=== PATIENT | male | born 1960 | race Caucasian/White ===

== ENCOUNTER 2016-08-26 10:09 | Emergency (ER) | payer OTHER ==
[~2016-08-26] VITALS: Ht 177.8 cm; Wt 100.0 kg
[~2016-08-26 10:09] MED LIST: CIPR500T2 PO; DENT1.1G; DIPH25CA PO; FAMO20TA2 PO; GEMF600T PO; IPRAAER INH; LACT10SO PO; LANTUS2P SQ; LISI10TA3 PO; LITH300C2 PO; METF1000 PO; METH10TA PO; NOVOLOGP2 SQ; PANT40TA3 PO; VENL75CA44 PO; ZIPR1CAP6 PO; [UNRECOGNIZED DRUG - CODE]; [UNRECOGNIZED DRUG - CODE] PO
[2016-08-26 10:11] VITALS: BP 169/94; PULSE 92; RESP 20; TEMP 98.1; O2SAT 99
[2016-08-26 11:15] VITALS: BP 200/96; PULSE 87; RESP 18; O2SAT 96
--- NOTE | 2016-08-26 11:28 | PD ---
HPI Chief Complaint: GI Complaint Time Seen by Provider: 11:24 Travel History International Travel<30 days: No Contact w/Intl Traveler<30days: No Traveled to known affect area: No History of Present Illness HPI Patient is complaining of generalized abdominal pain began 3 days ago. Patient states pain began after eating [employer]. Patient states had similar happen to him back in April of last year where he had to have stones removed. Patient reports they took his gallbladder at that time. Patient states he is not vomiting this time as he was previously. Patient states he feels in his abdomen is becoming more distended and having bloating pain. Patient states he has not had any type of bowel movement or passing gas for the past 3 days. Patient concerning the may have a blockage. Denies any fevers, chest pain, shortness of breath, or headaches. Patient reports he took his morning medications including his methadone. PFSH Past Medical History Arthritis: Yes (in back) Asthma: No Anxiety: Yes Depression: Yes Heart Rhythm Problems: No Cancer: No Cardiac Catheterization: No Cardiovascular Problems: Yes (HTN) High Cholesterol: Yes Chemotherapy: No Chest Pain: No Congestive Heart Failure: No COPD: No Diabetes: Yes Diminished Hearing: No Endocrine: No Gastrointestinal Disorders: Yes (ERCP FEB 2012) GERD: No Genitourinary: No Hiatal Hernia: No Hypertension: Yes Immune Disorder: No Musculoskeletal: Yes Neurologic: Yes Psychiatric: No Reproductive: No Respiratory: Yes (smoker, daily 3-4 per day) Migraines: Yes (once a month) Radiation Therapy: No Sickle Cell Disease: No Sleep Apnea: No Thyroid Disease: No Ulcer: No ?: Not Past Surgical History Abdominal Surgery: No AICD: No Arteriovenous Shunt: No Cardiac Surgery: No Cholecystectomy: Yes (FEB 2012) Coronary Artery Bypass Graft: No Ear Surgery: No Endocrine Surgery: No Eye Surgery: No Genitourinary Surgery: No Gynecologic Surgery: No Insulin Pump: No Joint Replacement: No Oral Surgery: Yes (upper teeth removed) Thoracic Surgery: No Social History Alcohol Use: No Tobacco Use: Yes Substance Use: No Allergies-Medications (Allergen,Severity, Reaction): Coded Allergies: Morphine (Verified Allergy, Intermediate, Itching, 08/26/16) Uncoded Allergies: short acting insulin (Allergy, Severe, Skin tightens, legs get red, ) Reported Meds & Prescriptions Reported Meds & Active Scripts Active Reported Dulcolax Stool Softener (Docusate Sodium) 100 Mg Cap 200 Mg PO DAILY Nicotine Patch (Nicotine) 21 Mg/24 Hr Patch 21 Mg T-DERMAL DAILY Metformin (Metformin HCl) 500 Mg Tab 2,000 Mg PO DAILY With a meal Lisinopril 40 Mg Tab 20 Mg PO DAILY Lactulose Liq (Lactulose) 10 Gm/15 Ml Soln 20 Ml PO BID PRN Lantus Inj (Insulin Glargine) 100 Unit/Ml Inj 5 Units SQ DAILY Methadone (Methadone HCl) 10 Mg Tab 50 Mg PO DAILY Review of Systems Except as stated in HPI: all other systems reviewed are Neg Physical Exam Narrative GENERAL: Well-developed, overly nourished, in no acute distress, and non-ill appearing. SKIN: Focused skin assessment warm and dry. HEAD: Atraumatic. Normocephalic. EYES: Pupils equal and round. EOMI. No scleral icterus. No injection or drainage. ENT: No nasal bleeding or discharge. Mucous membranes pink and moist. NECK: Trachea midline. Supple. No nuclear rigidity. CARDIOVASCULAR: Regular rate and rhythm. No murmur appreciated. RESPIRATORY: No accessory muscle use. No respiratory distress. Clear to auscultation. Breath sounds equal bilaterally. GASTROINTESTINAL: Abdomen slightly firm, distended. Hepatic and splenic margins not palpable. Hypoactive bowel sounds 4. No pulsatile mass. Patient reports tenderness throughout, but does not show signs of pain to palpation. MUSCULOSKELETAL: No obvious deformities. No clubbing. No cyanosis. Full range of motion. NEUROLOGICAL: Awake and alert. No obvious cranial nerve deficits. Motor grossly within normal limits. Normal speech. PSYCHIATRIC: Appropriate mood and affect; insight and judgment normal. Data Data Last Documented VS Vital Signs Date Time Temp Pulse Resp B/P Pulse Ox O2 Delivery O2 Flow Rate FiO2 08/26/16 11:45 18 96 Room Air 08/26/16 11:15 87 200/96 08/26/16 10:11 98.1 Orders Complete Blood Count With Diff (08/26/16 11:21) Comprehensive Metabolic Panel (08/26/16 11:21) Lipase (08/26/16 11:21) Lactic Acid (08/26/16 11:21) Prothrombin Time / Inr (Pt) (08/26/16 11:21) Act Partial Throm Time (Ptt) (08/26/16 11:21) Ct Abd/Pel W Iv Contrast(Rout) (08/26/16 11:21) Iv Access Insert/Monitor (08/26/16 11:21) Ecg Monitoring (08/26/16 11:21) Oximetry (08/26/16 11:21) Ondansetron Inj (Zofran Inj) (08/26/16 11:30) Sodium Chloride 0.9% Flush (Ns Flush) (08/26/16 11:30) Electrocardiogram (08/26/16 11:21) Chest, Single Ap (08/26/16 11:21) Iohexol 350 Inj (Omnipaque 350 Inj) (08/26/16 12:54) Labs Laboratory Tests Test 08/26/16 08/26/16 11:35 12:25 Prothrombin Time 10.0 SEC Prothromb Time International 0.9 RATIO Ratio Activated Partial 23.8 SEC Thromboplast Time Sodium Level 136 MEQ/L Potassium Level 4.6 MEQ/L Chloride Level 101 MEQ/L Carbon Dioxide Level 28.1 MEQ/L Anion Gap 7 MEQ/L Blood Urea Nitrogen 13 MG/DL Creatinine 0.94 MG/DL Estimat Glomerular Filtration 83 ML/MIN Rate Random Glucose 139 MG/DL Lactic Acid Level 1.2 mmol/L Calcium Level 9.3 MG/DL Total Bilirubin 0.4 MG/DL Aspartate Amino Transf 26 U/L (AST/SGOT) Alanine Aminotransferase 30 U/L (ALT/SGPT) Alkaline Phosphatase 129 U/L Total Protein 8.3 GM/DL Albumin 3.7 GM/DL Lipase 468 U/L White Blood Count 8.7 TH/MM3 Red Blood Count 4.62 MIL/MM3 Hemoglobin 11.6 GM/DL Hematocrit 36.2 % Mean Corpuscular Volume 78.4 FL Mean Corpuscular Hemoglobin 25.2 PG Mean Corpuscular Hemoglobin 32.2 % Concent Red Cell Distribution Width 13.6 % Platelet Count 230 TH/MM3 Mean Platelet Volume 8.3 FL Neutrophils (%) (Auto) 52.7 % Lymphocytes (%) (Auto) 37.0 % Monocytes (%) (Auto) 8.2 % Eosinophils (%) (Auto) 1.6 % Basophils (%) (Auto) 0.5 % Neutrophils # (Auto) 4.6 TH/MM3 Lymphocytes # (Auto) 3.2 TH/MM3 Monocytes # (Auto) 0.7 TH/MM3 Eosinophils # (Auto) 0.1 TH/MM3 Basophils # (Auto) 0.0 TH/MM3 CBC Comment DIFF FINAL Differential Comment MDM Medical Decision Making Medical Screen Exam Complete: Yes Emergency Medical Condition: Yes Differential Diagnosis SBO, ileus, obstipation, ascites, ischemic bowel, other Narrative Course Patient in room eating upon reevaluation. The patient presented with nonspecific abdominal pain. There was no significant history of vomiting or diarrhea and no fever. The patient appeared comfortable, well hydrated and the abdominal exam was mildly tender without guarding or rebound and no focal tenderness to me. Laboratory and radiologic/CT evaluation revealed no significant abnormalities. There was no evidence of an acute, surgical abdomen at this time. There was no clinical evidence to support appendicitis, bowel obstruction, cholecystitis/cholelithiasis, pancreatitis, perforation of gastric ulcer, colitis, diverticulitis, bacterial peritonitis, obstruction, volvulus, hernial incarceration or strangulation at this time. There was no evidence to support vascular pathology such as AAA, mesenteric ischemia. There was also no clinical evidence by history, exam or risk factors to suggest atypical presentation of cardiac disease such as ACS, AMI or atypical angina. No evidence to suggest genitourinary etiology as well. Clinical picture was discussed with the patient, as well as plan of care. The patient was instructed to follow up with their physician. Abdominal pain warnings were discussed with the patient. The patient is to return if worsens, pain worsens or changes, develop fever, inability to tolerate fluids with or without vomiting, unable to establish follow up or as needed. The patient agrees with plan. Patient in no obvious distress upon re-evaluation. All pertinent laboratory/ Radiology result(s) discussed with patient. Discussed patient with Dr. Leblanc, who saw and evaluated the patient and is in agreement with plan of care and disposition. Any questions/concerns in reference to patient diagnosis/ condition discussed and clarified prior to patient's discharge. Reinforced sheer importance of close follow up with patient's primary physician or primary care clinic. Instructed patient to return to ED immediately, if symptoms return/ worsen. Pt showed understanding of above instructions. Further instructions and recommendations were detailed in discharge paperwork. Pt ambulated without difficulty out of ED at discharge. 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 Return to the emergency department if symptoms get worse. Disposition: 01 DISCHARGE HOME Condition: Stable Hosea Alvarado Aug 26, 2016 11:28
[2016-08-26] MEDS ORDERED: SODIUM CHLORIDE 0.9% FLUSH 10 ML FLUSH IV FLUSH PRN (11:30)
[2016-08-26] MEDS ORDERED: ONDANSETRON HCL 4 MG/2 ML VIAL IVP ONE (11:30)
--- NOTE | 2016-08-26 11:42 | RADRPT ---
EXAM DATE/TIME: 08/26/2016 11:22 [facility] COMPARISON: No previous studies available for comparison. INDICATIONS : Free air, lower chest pain. MEDICAL HISTORY : Emphysema. SURGICAL HISTORY : None. ENCOUNTER: Initial ACUITY: 1 day PAIN SCORE: 8/10 LOCATION: Bilateral chest FINDINGS: A single view of the chest demonstrates the lungs to be symmetrically aerated without evidence of mas s, infiltrate or effusion. The cardiomediastinal contours are unremarkable. Osseous structures are intact. CONCLUSION: No acute disease. Cam Samuel MD FACR on August 26, 2016 at 11:40 Board Certified Radiologist. This report was verified electronically.
[2016-08-26 11:45] VITALS: RESP 18; O2SAT 96
[2016-08-26] MEDS ORDERED: LISI40TA PO (11:51)
[2016-08-26] MEDS ORDERED: METF500T PO (11:51)
[2016-08-26] MEDS ORDERED: NICO21DI2 T-DERMAL (11:51)
[2016-08-26] MEDS ORDERED: DULC100C PO (11:51)
[2016-08-26 12:13] LABS: APTT (PATIENT) 23.8 SEC (24.3-30.1); INTERNATIONAL NORMALIZED RATIO 0.9 RATIO
[2016-08-26 12:15] LABS: ANION GAP 7 MEQ/L (5-15); AST (GOT) 26 U/L (15-37); BICARBONATE 28.1 MEQ/L (21.0-32.0); BLOOD UREA NITROGEN 13 MG/DL (7-18); CHLORIDE 101 MEQ/L (98-107); GLOMERULAR FILTRATION RATE 83 ML/MIN (>89); POTASSIUM 4.6 MEQ/L (3.5-5.1); SODIUM (NA) 136 MEQ/L (136-145)
[2016-08-26 12:34] LABS: ALKALINE PHOSPHATASE 129 U/L (45-117); ALT (GPT) 30 U/L (12-78); TOTAL BILIRUBIN ADULT 0.4 MG/DL (0.2-1.0)
[2016-08-26 12:48] LABS: AUTOMATED NEUTROPHIL # 4.6 TH/MM3 (1.8-7.7); BASOPHIL % 0.5 % (0.0-2.0); EOSINOPHIL # 0.1 TH/MM3 (0-0.4); EOSINOPHIL % 1.6 % (0.0-4.0); HEMATOCRIT 36.2 % (39.0-51.0); HEMO FLAGS DIFF FINAL; LYMPHOCYTE # 3.2 TH/MM3 (1.0-4.8); MEAN CELL VOLUME 78.4 FL (80.0-100.0); MEAN CORPUSCULAR HEMOGLOBIN 25.2 PG (27.0-34.0); MEAN CORPUSCULAR HGB CONC 32.2 % (32.0-36.0); MONO % 8.2 % (0.0-8.0); NEUT % 52.7 % (16.0-70.0); PLATELET COUNT 230 TH/MM3 (150-450); RED BLOOD COUNT 4.62 MIL/MM3 (4.50-5.90); RED CELL DISTRIBUTION WIDTH 13.6 % (11.6-17.2); WHITE BLOOD COUNT 8.7 TH/MM3 (4.0-11.0)
[2016-08-26] MEDS ORDERED: IOHEXOL 350 MG/ML 10 ML VIAL (for RAD DIAG) IV ONE (12:54)
--- NOTE | 2016-08-26 13:38 | RADRPT ---
EXAM DATE/TIME: 08/26/2016 12:40 [facility] COMPARISON: No previous studies available for comparison. INDICATIONS : Upper and mid abdominal pain. IV CONTRAST: 96 cc Omnipaque 350 (iohexol) IV ORAL CONTRAST: No oral contrast ingested. RADIATION DOSE: 15.89 CTDIvol (mGy) MEDICAL HISTORY : Hypertension. Cardiovascular disease Diabetes, liver disease SURGICAL HISTORY : Cholecystectomy. ENCOUNTER: Initial ACUITY: 3 days PAIN SCALE: 6/10 LOCATION: Bilateral upper quadrant TECHNIQUE: Volumetric scanning of the abdomen and pelvis was performed. Using automated exposure control and ad justment of the mA and/or kV according to patient size, radiation dose was kept as low as reasonably achievable to obtain optimal diagnostic quality images. FINDINGS: LOWER LUNGS: The visualized lower lungs are clear. LIVER: Homogeneous density without lesion. There is no dilation of the biliary tree. Gallbladder is surgic ally absent. SPLEEN: Normal size without lesion. PANCREAS: Within normal limits. KIDNEYS: Normal in size and shape. There is no mass, stone or hydronephrosis. ADRENAL GLANDS: Within normal limits. VASCULAR: There is no aortic aneurysm. Minimal calcifications are noted. BOWEL/MESENTERY: The stomach, small bowel, and colon demonstrate no acute abnormality. There is no free intraperitone al air or fluid. ABDOMINAL WALL: Within normal limits. RETROPERITONEUM: There is no lymphadenopathy. BLADDER: No wall thickening or mass. REPRODUCTIVE: Within normal limits. INGUINAL: There is no lymphadenopathy or hernia. MUSCULOSKELETAL: Within normal limits for patient age. CONCLUSION: Negative for acute process. Cam Samuel MD FACR on August 26, 2016 at 13:34 Board Certified Radiologist. This report was verified electronically.
--- NOTE | 2016-08-26 18:05 | PD ---
Physical Exam Narrative I, Dr. Leblanc, have reviewed the advance practice practitioner's documentation and am in agreement, met with the patient face to face, made the diagnosis, and the medical decision making was done by me. *My assessment and Findings: Pancreatitis vs. cholecystitis vs. colitis 56yo M with epigastric abdominal pain for 3 days. Pt has history of ERCP with removal of stones. Pt currently has no fever, vomiting, urinary complaints. Abdomen is soft, mild ttp epigastric region. No rebound tenderness or guarding. Labs reviewed, no leukocytosis. Lactic acid 1.2. Lipase mildly elevated at 468. Pt given zofran for nausea. CXR negative. CTa/p negative for acute process. Pt reevaluated at bedside and abdominal pain resolved. Pt is tolerating PO and eating in the ED. Return precautions given. Data Data Last Documented VS Vital Signs Date Time Temp Pulse Resp B/P Pulse Ox O2 Delivery O2 Flow Rate FiO2 08/26/16 11:45 18 96 Room Air 08/26/16 11:15 87 200/96 08/26/16 10:11 98.1 Orders Complete Blood Count With Diff (08/26/16 11:21) Comprehensive Metabolic Panel (08/26/16 11:21) Lipase (08/26/16 11:21) Lactic Acid (08/26/16 11:21) Prothrombin Time / Inr (Pt) (08/26/16 11:21) Act Partial Throm Time (Ptt) (08/26/16 11:21) Ct Abd/Pel W Iv Contrast(Rout) (08/26/16 11:21) Iv Access Insert/Monitor (08/26/16 11:21) Ecg Monitoring (08/26/16 11:21) Oximetry (08/26/16 11:21) Ondansetron Inj (Zofran Inj) (08/26/16 11:30) Sodium Chloride 0.9% Flush (Ns Flush) (08/26/16 11:30) Electrocardiogram (08/26/16 11:21) Chest, Single Ap (08/26/16 11:21) Iohexol 350 Inj (Omnipaque 350 Inj) (08/26/16 12:54) Labs Laboratory Tests Test 08/26/16 08/26/16 11:35 12:25 Prothrombin Time 10.0 SEC Prothromb Time International 0.9 RATIO Ratio Activated Partial 23.8 SEC Thromboplast Time Sodium Level 136 MEQ/L Potassium Level 4.6 MEQ/L Chloride Level 101 MEQ/L Carbon Dioxide Level 28.1 MEQ/L Anion Gap 7 MEQ/L Blood Urea Nitrogen 13 MG/DL Creatinine 0.94 MG/DL Estimat Glomerular Filtration 83 ML/MIN Rate Random Glucose 139 MG/DL Lactic Acid Level 1.2 mmol/L Calcium Level 9.3 MG/DL Total Bilirubin 0.4 MG/DL Aspartate Amino Transf 26 U/L (AST/SGOT) Alanine Aminotransferase 30 U/L (ALT/SGPT) Alkaline Phosphatase 129 U/L Total Protein 8.3 GM/DL Albumin 3.7 GM/DL Lipase 468 U/L White Blood Count 8.7 TH/MM3 Red Blood Count 4.62 MIL/MM3 Hemoglobin 11.6 GM/DL Hematocrit 36.2 % Mean Corpuscular Volume 78.4 FL Mean Corpuscular Hemoglobin 25.2 PG Mean Corpuscular Hemoglobin 32.2 % Concent Red Cell Distribution Width 13.6 % Platelet Count 230 TH/MM3 Mean Platelet Volume 8.3 FL Neutrophils (%) (Auto) 52.7 % Lymphocytes (%) (Auto) 37.0 % Monocytes (%) (Auto) 8.2 % Eosinophils (%) (Auto) 1.6 % Basophils (%) (Auto) 0.5 % Neutrophils # (Auto) 4.6 TH/MM3 Lymphocytes # (Auto) 3.2 TH/MM3 Monocytes # (Auto) 0.7 TH/MM3 Eosinophils # (Auto) 0.1 TH/MM3 Basophils # (Auto) 0.0 TH/MM3 CBC Comment DIFF FINAL Differential Comment [facility] Supervised Visit with CARRIE: Yes Interpretation(s) EKG: NSR 71bpm. Normal axis. No ST segment elevation or depression. Diagnosis Primary Impression: Abdominal discomfort Referrals: Administrator Primary Care Physician Patient Instructions: General Instructions, Abdominal Pain (ED) Departure Forms: Tests/Procedures Additional Instruction: Follow-up with your primary care physician and GI doctor in 2-5 days for reevaluation. Return to the emergency department if symptoms get worse. Disposition: 01 DISCHARGE HOME Condition: Stable Kimmy Leblanc DO Aug 26, 2016 18:05
--- NOTE | 2016-08-27 12:29 | EKG ---
Date Performed: 08/26/2016 Time Performed: 13:01:48 PTAGE: 56 years EKG: Sinus rhythm POSSIBLE RIGHT VENTRICULAR CONDUCTION DELAY BORDERLINE ECG Compared to prior tracing no significant change PREVIOUS TRACING : 05/08/2016 14.00 DOCTOR: Thanh Gaitan Interpretating Date/Time 08/27/2016 12:28:26
== END 2016-08-26 14:40 | disposition home or self-care (01) ==
LOC: NEPE 10:09
DX: R10.84 Generalized abdominal pain (principal); R14.0 Abdominal distension (gaseous); K59.00 Constipation, unspecified; R94.31 Abnormal electrocardiogram [ECG] [EKG]; I10 Essential (primary) hypertension; E11.9 Type 2 diabetes mellitus without complications; E78.00 Pure hypercholesterolemia, unspecified; Z72.0 Tobacco use; Z79.4 Long term (current) use of insulin; Z87.39 Personal history of other diseases of the musculoskeletal system and connective tissue; Z86.79 Personal history of other diseases of the circulatory system; Z87.19 Personal history of other diseases of the digestive system; Z86.69 Personal history of other diseases of the nervous system and sense organs; Z87.09 Personal history of other diseases of the respiratory system; Z86.59 Personal history of other mental and behavioral disorders
CPT/HCPCS: 71010; 74177; 80053; 83605; 83690; 85025; 85610; 85730; 93005; 96374; 99284; J2405; Q9967